=== PATIENT | female | born 1965 | race Caucasian/White ===

== ENCOUNTER 2019-03-11 10:31 | Inpatient (IN) ==
[2019-03-11] MEDS ORDERED: NS 1,000 ML IV ONE (11:10)
[2019-03-11] MEDS ORDERED: DUONEB (A & A) INH ONE (11:11)
--- NOTE | 2019-03-11 11:23 | Diag Imaging Result Doc PS360 ---
EXAM: CHEST-2 VIEWS HISTORY: cough, SOB TECHNIQUE: Two views COMPARISON: 01/01/2017 FINDINGS: The lungs are well expanded. The heart is not enlarged. The vessels are not distended. There are nodular infiltrates in the lower left lung. No pleural effusions. IMPRESSION: Left lower lung nodular infiltrates. Short-term follow-up after treatment recommended. Electronically signed by Tomasz Alejo 03/11/2019 11:21 AM
[2019-03-11 11:28] LABS: BASO# 0.04 X1000 (0.0-0.2); BASO% 0.2 % (0.0-0.8); HEMATOCRIT 43.5 % (37.0-47.0); IMM GRAN# 0.22 X1000 (0.0-0.04); IMM GRAN% 1.3 % (0.0-0.5); LYMPH% 12.3 % (20.5-51.1); MCH 28.1 PG (27-31); MCHC 32.2 g/dL (33-37); MCV 87.2 FL (81-99); MONO# 1.37 X1000 (0.11-0.59); MPV 10.6 FL (7.4-10.4); NEUT# 13.31 X1000 (1.4-6.5); NEUT% 78.2 % (42.2-75.2); PLT 394 X1000 (130-400); RBC 4.99 XMIL (4.2-5.4); WBC 17.04 X1000 (4.8-10.8)
[2019-03-11] MEDS ORDERED: ROCEPHIN 1 GM in NS 50 ML IV ONE (11:40)
--- NOTE | 2019-03-11 11:50 | PROVIDER DOCUMENTATION ---
This chart was entered by Polly Rosales Scribe, acting as scribe for Dulce Lewis MD. HPI-General Adult - General Chief Complaint: Shortness of Breath Stated Complaint: POSSIBLE PNEUMONIA/+FLU Time Seen by Provider: 03/11/19 10:48 Source: patient Allergies/Adverse Reactions: Patient Allergies Allergy/AdvReac Type Severity Reaction Status Date / Time morphine Allergy Intermediate HIVES Verified 03/11/19 13:58 Home Medications: Home Medication List Medication Instructions Recorded Confirmed Last Taken Type LISINOpril [Prinivil] 10 mg PO DAILY 06/27/15 03/11/19 03/11/19 History Pantoprazole [Protonix] 40 mg PO BID 06/27/15 03/12/19 03/11/19 History Hydrocodone Bit/Acetaminophen 1 each PO DAILY 10/27/16 03/11/19 03/11/19 History [Hydrocodon-Acetaminoph 7.5-325] Albuterol 2.5MG/Ipratrop 0.5MG 3 ml INH Q6H PRN PRN 01/01/17 03/11/19 03/11/19 History [Duoneb (A & A)] Fluticasone/Vilanterol [Breo 1 inh INH DAILY 01/01/17 03/11/19 03/11/19 History Ellipta 100-25 Mcg INH] Metformin HCl 2 tab PO TID 03/11/19 03/11/19 03/11/19 History Acetaminophen [Tylenol] 650 mg PO Q4H PRN PRN tab 03/14/19 Unknown Rx Amlodipine [Norvasc] 5 mg PO BID #60 tab 03/14/19 Unknown Rx Levofloxacin [Levaquin] 750 mg PO DAILY #11 tab 03/14/19 Unknown Rx Penicillin V Potassium [Pen Vk] 500 mg PO Q8H #66 tab 03/14/19 Unknown Rx - History of Present Illness -Gen Adult Nature of Presenting Problems: Patient is a 53 year old female who presents to the ED via EMS with multiple complaints. States symptoms of fever, cough, shortness of breath, loss of appetite, nausea, vomiting and diarrhea. Report being diagnosed with flu 4 days ago and was diagnosed with pneumonia, dehydration and UTI this morning. History of asthma, HTN and diabetes. Denies having a flu shot. Location of Pain/Injury: reports: none Quality of Pain: reports: none Severity: reports: mild Onset/Duration: reports: gradual Timing: reports: still present, getting worse Context/Activities at Onset: reports: light activity Associated Symptoms: reports: cough, diarrhea, fever/chills (fever), loss of appetite, nausea, shortness of breath, vomiting Similar Symptoms Previously?: Yes Recently seen or treated by another doctor?: Yes Review of Systems - Adult - REVIEW OF SYSTEMS - ADULT Constitutional: reports: see HPI, fever Eyes: reports: no symptoms reported Ears, Nose, Mouth & Throat: reports: no symptoms reported Cardiovascular: reports: no symptoms reported Respiratory: reports: see HPI, cough, shortness of breath Gastrointestinal: reports: see HPI, diarrhea, nausea, poor appetite, vomiting Genitourinary: reports: no symptoms reported Musculoskeletal: reports: no symptoms reported Integumentary: reports: no symptoms reported Neurological: reports: no symptoms reported Psychiatric: reports: no symptoms reported Endocrine: reports: no symptoms reported Hematologic/Lymphatic: reports: no symptoms reported Allergic/Immunologic: reports: no symptoms reported All Other Systems: Reviewed and Negative Past History - Adult - PAST MEDICAL HISTORY-ADULT Review of Records: reports: Old Records Reviewed, Nursing Assessment Review, Medications Reviewed, Social history reviewed & non-contributory. Major Childhood Illnesses: reports: denies history Cardiovascular: reports: HTN, hyperlipidemia Respiratory: reports: asthma Gastrointestinal: reports: GERD Genitourinary: reports: denies history Musculoskeletal: reports: other (chronic back pain, disc hernia) Neurological: reports: denies history Endocrine/Immune: reports: Diabetes Other Conditions: reports: denies history - PRIOR SURGERIES/PROCEDURES Surgical/Procedure History: reports: cholecystectomy, BTL - IMMUNIZATION STATUS Childhood Immunizations: See Nurse Assessment Flu Vaccine: See Nurse Assessment - FAMILY HISTORY Family History: reviewed, not pertinent - SOCIAL HISTORY Smoking: denies Substance Use: denies Living Situation: family Physical Exam-General - PHYSICAL EXAM-ADULT Initial Vital Signs Reviewed: Yes - CONSTITUTIONAL General Appearance: alert, no apparent distress. negative: obtunded - RESPIRATORY Respiratory: chest non-tender, rhonchi (right). negative: respiratory distress, accessory muscle use - CARDIOVASCULAR Cardiovascular: regular rate, rhythm, no gallop. negative: tachycardia, systolic murmur - GASTROINTESTINAL (ABDOMEN) Abdominal Exam: normal bowel sounds, non tender, soft. negative: guarding, rigid - MUSCULOSKELETAL Extremity: non-tender, normal inspection. negative: pedal edema - SKIN Integumentary: normal turgor, warm/dry. negative: diaphoresis - NEUROLOGIC Neurologic: grossly normal. negative: aphasia - PSYCHIATRIC Psych/Mental Status: normal mood/affect, oriented x 3. negative: anxious Progress - PLAN OF CARE/RESULTS Progress/Plan/Lab Results: Vital Signs - 8 hr 03/11/19 10:48 Temperature 99.2 F Pulse Rate 86 Respiratory Rate 15 Blood Pressure 146/80 O2 Sat by Pulse Oximetry 96 Orders Category Date Time Status CHEST-2 VIEWS [RAD] Stat Exams 03/11/19 11:09 Ordered CBC WITH ELECTRONIC DIFF [HEME] Stat Lab 03/11/19 11:09 Uncollected COMPREHENSIVE METABOLIC PANEL [CHEM] Stat Lab 03/11/19 11:09 Uncollected LACTATE, PLASMA [CHEM] Stat Lab 03/11/19 11:10 Uncollected URINALYSIS W/POSS RFLX CULT [URINALYSIS] Stat Lab 03/11/19 11:09 Uncollected 0.9% Sodium Chloride Inj [Ns] 1,000 ml Med 03/11/19 11:10 Active IV 999 mls/hr Result Diagrams: 03/13/19 04:51 03/14/19 04:55 - XRAY 1 XRAY Study: Chest Impression: See EMR Report (EXAM: CHEST-2 VIEWS HISTORY: cough, SOB TECHNIQUE: Two views COMPARISON: 01/01/2017 FINDINGS: The lungs are well expanded. The heart is not enlarged. The vessels are not distended. There are nodular infiltrates in the lower left lung. No pleural effusions. IMPRESSION: Left lower lung nodular infiltrates. Short-term follow-up after treatment recommended. Electronically signed by Tomasz Alejo 03/11/2019 11:21 AM) - CONSULTS/PCP/HOSPITALIST Notification #1 *Consult/PCP/Hospitalist*: JOSE LUIS Iqbal for Hospitalist Time Discussed: 13:30 Reason/Comments: Dr. Lewis consulted with Farida about patient. Consult Disposition: Will see in ED, Admit Departure - Departure Date of Disposition Decision: 03/11/19 Time of Disposition Decision: 13:30 DIAGNOSIS: Pneumonia Disposition: ADMITTED INPATIENT 09 Certified Medical Emergency: Emergent Condition: Stable - Critical Care Note This patient required my direct & personal management of CC.: No Attestation - Physician/ OLIVIA Attestation The physician spent face to face time with patient:: Yes Advanced Practice Provider documentation review:: Supervising physician onsite and consulted in the evaluation and care of this patient. The physician did have a face to face encounter with the patient. This chart was documented by the indicated scribe, (Polly Rosales Scribe) and accurately reflects the services I performed and decisions made by me, Dulce Lewis MD, as attested by the provider's signature.
[2019-03-11 12:17] LABS: URINE SOURCE CLEAN CATCH
[2019-03-11 12:20] LABS: AGAP 19; ALB/GLOB RATIO 0.9; ALBUMIN 3.4 g/dL (3.5-5.0); ALKALINE PHOSPHATASE 85 U/L (32-104); BUN 7 mg/dL (8-22); CALCIUM 8.8 mg/dL (8.8-10.2); CHLORIDE 90 mmol/L (98-107); COSMO 261; CREATININE 0.7 mg/dL (0.5-0.9); ESTIMATED GFR > 60; GLUCOSE 169 mg/dL (70-104); GOT 51 U/L (10-30); GPT 40 U/L (10-36); POTASSIUM 3.6 mmol/L (3.5-5.1); SODIUM 129 mmol/L (136-145); TCO2 20 mmol/L (25-35); TOTAL BILIRUBIN 0.71 mg/dL (0.20-1.00); TOTAL PROTEIN 7.2 g/dL (6.3-8.3)
[2019-03-11 12:22] LABS: BILIRUBIN URINE NEGATIVE (NEGATIVE); BLOOD URINE LARGE (NEGATIVE); COLOR YELLOW; GLUCOSE URINE NEGATIVE (NEGATIVE); KETONE URINE 20 mg/dL (NEGATIVE); LEUKOCYTES URINE LARGE (NEGATIVE); NITRITE URINE NEGATIVE (NEGATIVE); PROTEIN URINE 30 mg/dL (NEGATIVE); SP GRAVITY URINE 1.012; TURBIDITY URINE HAZY (CLEAR); UROBILINOGEN URINE NORMAL (NORMAL)
[2019-03-11 12:24] LABS: UR EPITHELIAL CELLS <10 /HPF (<10); URINE BACTERIA 2+ /HPF; URINE RBC <10 /HPF (<10); URINE WBC TNTC /HPF (<10)
[2019-03-11 12:28] LABS: URINE CASTS NONE SEEN; URINE CRYSTALS NONE SEEN; URINE SMALL ROUND CELLS RENAL PRESENT; URINE YEAST NONE SEEN
[2019-03-11 12:34] LABS: INR 1.05; PROTIME 13.8 Seconds (11.0-16.0)
[2019-03-11] MEDS ORDERED: VANCOMYCIN 1 GM/NS 1 GM/250 ML IVPB IV ONE (13:25)
[2019-03-11] MEDS ORDERED: DUONEB (A & A) INH PRN (15:46)
[2019-03-11] MEDS ORDERED: TYLENOL PO PRN (15:46)
--- NOTE | 2019-03-11 16:15 | Diag Imaging Result Doc PS360 ---
EXAM: CHEST-PORTABLE 03/11/2019 HISTORY: Pneumonia TECHNIQUE: AP portable upright at 1558 COMMENT: Compared to 03/11/2019 at 1121 the left lower lobe opacities have improved slightly. IMPRESSION: Improved atelectasis and/or pneumonia in the left lower lobe. Electronically signed by Venkata Waddell 03/11/2019 4:13 PM
[2019-03-11] MEDS: NS 1,000 ML IV SCH (16:30)
[2019-03-11] MEDS: HUMALOG SUBQ SCH ×2 (16:30→22:17)
[2019-03-11] MEDS: MOTRIN PO SCH ×2 (16:50→22:17)
[2019-03-11] MEDS: DUONEB (A & A) INH SCH ×3 (17:48→23:11)
--- NOTE | 2019-03-11 17:53 | EKG Report ---
Test Performed on : 03/11/2019 5:29:44 PM Test Reason : elevated troponin Blood Pressure : / mmHG Vent. Rate : 087 BPM Atrial Rate : 087 BPM P-R Int : 134 ms QRS Dur : 078 ms QT Int : 398 ms P-R-T Axes : 062 035 -25 degrees QTc Int : 478 ms Normal sinus rhythm. Nonspecific ST and T wave abnormality Abnormal ECG When compared with ECG of 01-JAN-2017 21:32, T wave inversion now evident in Inferior leads Nonspecific T wave abnormality now evident in Anterolateral leads Unconfirmed Result
[2019-03-11] MEDS: ZITHROMAX 500 MG/NS 500 MG/250 ML IVPB IV SCH (18:30)
--- NOTE | 2019-03-11 21:22 | HISTORY AND PHYSICAL ---
PRIMARY CARE PROVIDER: Dr. Reg Hyman. CHIEF COMPLAINT: Pneumonia, flu, nausea, vomiting, UTI. HISTORY OF PRESENT ILLNESS: Ms. Donis is a 53-year-old female who reports she went to an urgent care 3 days ago with nausea, vomiting, and diarrhea. They thought she had the flu at that time. She went back to an urgent care today and since her symptoms started last Sunday, they thought it had been too long to start her on Tamiflu, but was also diagnosed with pneumonia and a urinary tract infection. She reported her last episode of vomiting and diarrhea was yesterday. She has had shortness of breath, headache, body aches and chills, but no chest pain per se, loss of appetite. She called EMS to bring her to the ED. Workup revealed a white count of 17, flu A positive, a left lower lung infiltrate, urinary tract infection, mild transaminitis, negative lactate, and a troponin of 45, but no complaints of chest pain. We will initiate her on IV fluids and symptomatic treatment with Tylenol and Motrin, and Rocephin for her pneumonia, bronchodilators and supplemental O2, and aggressive IV hydration. PAST MEDICAL HISTORY: 1. Diabetes mellitus. 2. Hypertension. 3. Hyperlipidemia. 4. Asthma. 5. Gastroesophageal reflux disease. 6. Chronic back pain. PAST SURGICAL HISTORY: 1. Cholecystectomy. 2. Bilateral tubal ligation. FAMILY HISTORY: No coronary disease. I believe a grandmother with a CVA. ALLERGY: Morphine. HOME MEDICATIONS: 1. Breo Ellipta inhaled once daily. 2. DuoNeb 3 mL inhaled q.6 hours p.r.n. 3. [place] 7.5/325 one each daily. 4. Metformin 500 mg 2 tablets p.o. t.i.d. 5. Prinivil 10 mg p.o. daily. 6. Protonix 40 mg p.o. daily. REVIEW OF SYSTEMS: Twelve-point review of systems completely negative except for those mentioned in HPI. PHYSICAL EXAMINATION: VITAL SIGNS: Temperature is 99.7 degrees, heart rate 86, respirations 13, blood pressure 130/72, O2 is 93% on room air. GENERAL: Ms. Donis is an ill-appearing 53-year-old female who is sitting up in the bed in no acute distress. HEENT: Atraumatic, normocephalic. PERRL. NECK: Supple. Trachea midline. CV: S1, S2 appreciated. No murmurs, gallops, rubs noted. RESPIRATORY: Lung sounds scattered rhonchi. No wheezes appreciated. GI: Soft, nontender, and nondistended. Positive bowel sounds 4 quadrants. EXTREMITIES: Lower extremities negative for edema. NEUROLOGIC: No focal deficits noted. IMAGING: Chest x-ray showed left lower lung nodular infiltrates. Recommended followup after treatment. LABORATORY DATA: White count 17, hemoglobin and hematocrit 14 and 43, platelet count is 349,000. Chemistry: Sodium 129, potassium 3.6, BUN 7, creatinine 0.7, blood glucose is 169. AST 51, ALT 40. CK 158. Troponin 45. Plasma lactates are negative. ASSESSMENT AND PLAN: 1. Flu A positive. The patient has been having fever and chills and general malaise since Sunday. She is too far out for Tamiflu. We will continue with symptomatic treatment and aggressive intravenous hydration. 2. Left lower lung pneumonia. We will initiate intravenous Rocephin, bronchodilators, supplemental oxygen, aggressive pulmonary toilet. Will recheck a chest x-ray after treatment per recommendations. 3. Urinary tract infection. We will continue Rocephin. Await urine culture. 4. Nausea, vomiting, diarrhea. She has had no episodes since yesterday. We will do antiemetics p.r.n. 5. Clinical dehydration. We will continue with aggressive intravenous fluids. 6. Elevated troponin. Patient adamantly denies any chest pain. We will continue to trend her troponins. Electrocardiogram is being obtained, check for any ST changes. 7. Mild transaminitis, secondary to dehydration. We will recheck liver function in the morning. Continue with hydration. 8. Hypertension, stable. 9. Hyperlipidemia. 10. Chronic back pain. 11. Further recommendation to follow physician evaluation, laboratory and diagnostic data. Dictated by JOSE LUIS Andrea for Vadim Hartman MD cc: MD Reg Nelson MD
--- NOTE | 2019-03-11 21:51 | HISTORY AND PHYSICAL ---
HISTORY OF PRESENT ILLNESS: Patient seen and examined by me face to face. All the laboratory, vital signs, and images were reviewed. This patient presented to the emergency department with shortness of breath mainly, also fever, loss of appetite, some diarrhea and nausea. I believe she had some kind of vomiting for a little bit. As per the patient, she was diagnosed with flu 4 to 5 days ago. She is hyponatremic. The glucose level is 169. AST and ALT are elevated. White blood cell count is high as well. I do not think this patient is septic although she has high white blood cell count, a source of infection at the level of the left lower lung. She also had a low- grade temperature of 99.7 degrees. She already received some antibiotics. She has been placed on ceftriaxone, and I agree with that, as well as IV fluids. I will add azithromycin to her medications. I am not going to continue her oseltamivir that she was taking at home. I will put her back on her pantoprazole, her Breo as well. She is already on breathing treatment. I agree with the rest of the nurse practitioner's assessment and plan cc: Vadim Hartman MD MTDD
[2019-03-12] MEDS: NS 1,000 ML IV SCH ×4 (01:06→14:17)
[2019-03-12] MEDS: DUONEB (A & A) INH SCH ×6 (03:21→23:05)
[2019-03-12] MEDS: MOTRIN PO SCH ×4 (04:20→21:30)
[2019-03-12 05:51] LABS: HEMOGLOBIN A1C 7.3 % (4.8-6.0)
[2019-03-12] MEDS: HUMALOG SUBQ SCH ×5 (06:39→21:27)
[2019-03-12 07:33] LABS: AGAP 17; ALKALINE PHOSPHATASE 81 U/L (32-104); BUN 8 mg/dL (8-22); CALCIUM 8.4 mg/dL (8.8-10.2); CHLORIDE 104 mmol/L (98-107); COSMO 284; CREATININE 0.6 mg/dL (0.5-0.9); ESTIMATED GFR > 60; GLUCOSE 148 mg/dL (70-104); GOT 20 U/L (10-30); GPT 26 U/L (10-36); POTASSIUM 3.6 mmol/L (3.5-5.1); SODIUM 142 mmol/L (136-145); TCO2 21 mmol/L (25-35); TOTAL BILIRUBIN 0.38 mg/dL (0.20-1.00)
[2019-03-12 08:46] LABS: BASO# 0.04 X1000 (0.0-0.2); BASO% 0.3 % (0.0-0.8); EOS# 0.06 X1000 (0.0-0.7); EOS% 0.4 % (0.0-10.0); HEMATOCRIT 36.5 % (37.0-47.0); HEMOGLOBIN 11.6 g/dL (12.0-16.0); IMM GRAN# 0.08 X1000 (0.0-0.04); IMM GRAN% 0.5 % (0.0-0.5); LYMPH# 3.46 X1000 (1.2-3.4); LYMPH% 22.9 % (20.5-51.1); MCHC 31.8 g/dL (33-37); MCV 88.2 FL (81-99); MONO# 1.25 X1000 (0.11-0.59); MONO% 8.3 % (1.7-9.3); MPV 10.9 FL (7.4-10.4); NEUT# 10.21 X1000 (1.4-6.5); NEUT% 67.6 % (42.2-75.2); PLT 329 X1000 (130-400); RBC 4.14 XMIL (4.2-5.4)
[2019-03-12] MEDS: PROTONIX PO SCH (09:32)
[2019-03-12] MEDS ORDERED: FLU VACCINE IM ONE (11:27)
[2019-03-12] MEDS ORDERED: TAMIFLU PO SCH (12:15)
[2019-03-12] MEDS: ROCEPHIN 1 GM in NS 50 ML IV SCH (14:17)
[2019-03-12] MEDS: BREO ELLIPTA 100/25 MCG INH INH SCH (16:00)
[2019-03-12] MEDS ORDERED: PRINIVIL PO ONE (16:42)
[2019-03-12] MEDS: ZITHROMAX 500 MG/NS 500 MG/250 ML IVPB IV SCH (17:31)
--- NOTE | 2019-03-12 17:40 | PROGRESS NOTE ---
DATE: 03/13/2019 SUBJECTIVE: This patient is feeling much better. She is still having some shortness of breath. She is still using oxygen. We have a positive sputum culture that showed gram-negative rods and also a urine culture that showed gram-negative trell. This patient has been placed on ceftriaxone and azithromycin. We also have an influenza test that showed positive for influenza A, but this patient has been having some symptomatology like fever, chills, and general malaise since Sunday, so she is too far out for treatment with oseltamivir. OBJECTIVE: Vital Signs: Temperature 97.7 degrees, pulse 72, respiratory rate 19, blood pressure 155/72, oxygen saturation 96 on 2 L of nasal cannula. HEENT: Head normocephalic, no trauma. PERRLA. Neck: Supple. No JVD. No masses. Central trachea. Chest: Clear to auscultation. Some crepitus and rhonchi at the left base. Abdomen: Soft, nontender, nondistended. No hepatosplenomegaly. Extremities: No edema. No clubbing. No cyanosis. Neurological: The patient is awake, alert. She is oriented x3. No focal deficits. LABORATORY: WBC 15.1, hemoglobin 11.6, hematocrit 36.5, platelets 329,000. Sodium 142, potassium 3.6, chloride 104, bicarbonate 21, BUN 8, creatinine 0.6, glucose 148, calcium 8.4, albumin 3. ASSESSMENT AND PLAN: 1. Left lower lobe pneumonia. Continue with azithromycin and ceftriaxone. Continue with oxygen supplementation, pulmonary toilet, IV fluids, breathing treatment. 2. Flu A positive. This patient started having fever last Sunday, so she is too far out for treatment with Tamiflu. Continue with symptomatic treatment for now. 3. Urinary tract infection. Continue with Rocephin. 4. Nausea, vomiting, diarrhea. It looks like this patient seems to be feeling better. She has been placed on a diet and she is tolerating that. 5. Dehydration. Resolved. 6. Elevated troponin. No chest pain. No EKG changes. 7. Mild transaminitis secondary to dehydration. 8. Hypertension. Stable. 9. Hyperlipidemia. Aware. 10. Chronic back pain. Aware. cc: Vadim Hartman MD
[2019-03-13] MEDS: NS 1,000 ML IV SCH ×2 (00:04→11:40)
[2019-03-13] MEDS: DUONEB (A & A) INH SCH ×7 (03:26→23:30)
[2019-03-13] MEDS: MOTRIN PO SCH ×4 (05:13→21:48)
[2019-03-13] MEDS: HUMALOG SUBQ SCH ×4 (06:14→21:50)
[2019-03-13 06:18] LABS: BASO# 0.07 X1000 (0.0-0.2); BASO% 0.7 % (0.0-0.8); EOS# 0.11 X1000 (0.0-0.7); EOS% 1.1 % (0.0-10.0); HEMATOCRIT 35.1 % (37.0-47.0); HEMOGLOBIN 10.9 g/dL (12.0-16.0); IMM GRAN# 0.16 X1000 (0.0-0.04); IMM GRAN% 1.6 % (0.0-0.5); LYMPH% 30.5 % (20.5-51.1); MCH 27.5 PG (27-31); MCHC 31.1 g/dL (33-37); MCV 88.4 FL (81-99); MONO# 0.77 X1000 (0.11-0.59); MONO% 7.8 % (1.7-9.3); MPV 10.5 FL (7.4-10.4); NEUT# 5.72 X1000 (1.4-6.5); NEUT% 58.3 % (42.2-75.2); PLT 317 X1000 (130-400); RBC 3.97 XMIL (4.2-5.4); RDW 13.5 % (11.5-14.5); WBC 9.83 X1000 (4.8-10.8)
[2019-03-13 06:30] LABS: AGAP 14; BUN 4 mg/dL (8-22); CALCIUM 8.1 mg/dL (8.8-10.2); CHLORIDE 108 mmol/L (98-107); COSMO 291; CREATININE 0.6 mg/dL (0.5-0.9); ESTIMATED GFR > 60; GLUCOSE 230 mg/dL (70-104); POTASSIUM 2.8 mmol/L (3.5-5.1); SODIUM 144 mmol/L (136-145); TCO2 22 mmol/L (25-35)
[2019-03-13] MEDS ORDERED: BLISTEX MEDICATED BERRY LIP BALM TOP PRN (08:05)
[2019-03-13 08:13] LABS: LYMPHS 30 % (21-51); SEGS 56 % (42-75)
[2019-03-13 08:14] LABS: EOS 1 % (1-10); MONO 9 % (1-9)
[2019-03-13] MEDS: PROTONIX PO SCH (10:18)
[2019-03-13] MEDS: PRINIVIL PO SCH (10:19)
[2019-03-13] MEDS: BREO ELLIPTA 100/25 MCG INH INH SCH (11:10)
[2019-03-13] MEDS: ROCEPHIN 1 GM in NS 50 ML IV SCH (12:50)
[2019-03-13] MEDS ORDERED: KLOR-CON PO ONE (15:38)
[2019-03-13] MEDS ORDERED: NORVASC PO ONE (15:39)
[2019-03-13] MEDS ORDERED: POTASSIUM CHLORIDE 10% LIQUID PO ONE (16:10)
[2019-03-13] MEDS: ZITHROMAX 500 MG/NS 500 MG/250 ML IVPB IV SCH (17:28)
--- NOTE | 2019-03-13 19:14 | PROGRESS NOTE ---
DATE: 03/13/2019 SUBJECTIVE: The patient is feeling much better. Her blood pressure has been high, so I will stop the IV fluids now since she seems to be hydrated, and I will give her a single dose of amlodipine. Continue with lisinopril. Her white blood cell count normalized today at 9.8. Her potassium level is low and I will replace it. She still has a sputum culture showing gram-negative rods and also Streptococcus mitis and Streptococcus oralis. Urine culture showed Proteus mirabilis, but she is asymptomatic. OBJECTIVE: Vital Signs: Temperature 97.4 degrees, pulse 70, respiratory rate 18, blood pressure 182/90, oxygen saturation 99% on room air. HEENT: Head normocephalic, no trauma. PERRLA. Neck: Supple. No JVD. No masses. Central trachea. Chest: Clear to auscultation. Crepitus and rhonchi at the level of the left base. Abdomen: Soft, nontender, nondistended. No hepatosplenomegaly. Extremities: No edema, no clubbing, no cyanosis. Neurological: The patient is awake, alert. She is oriented x3. No focal deficits. LABORATORY DATA: WBC 9.8, hemoglobin 10.9, hematocrit 35.1, platelets 317,000. Sodium 144, potassium 2.8, chloride 108, bicarbonate 22, BUN 4, creatinine 0.6, glucose 230, calcium 8.1. ASSESSMENT AND PLAN: 1. Left lower lobe pneumonia. Continue with azithromycin and ceftriaxone. Continue with oxygen supplementation as needed, pulmonary toilet. I will stop the intravenous fluid, and I will continue with breathing treatment. 2. Flu A positive. The patient started having fever last Sunday, so she is too far out to start treatment with Tamiflu this time. Continue with symptomatic treatment for now. I think she is getting better. 3. Urinary tract infection, asymptomatic. 4. Nausea, vomiting, and diarrhea, better. 5. Dehydration, resolved. 6. Elevated troponin. No chest pain. No EKG changes. 7. Mild transaminitis secondary to dehydration, resolved. 8. Hypertension. As per the patient, her blood pressure at home has been controlled with lisinopril 10 mg, and she has been recommended by her doctor if the blood pressure increases a little bit, increase the day lisinopril to 20, and as per the patient, this has been controlling her blood pressure. 9. Hyperlipidemia, aware. 10. Chronic back pain. Continue with same management. SUMMARY/PLAN: Overall, this patient is doing much better. I am still waiting for the sputum culture. Hopefully, tomorrow morning I will discharge this patient home. cc: Vadim Hartman MD
[2019-03-14] MEDS: DUONEB (A & A) INH SCH ×2 (03:10→07:39)
[2019-03-14] MEDS: MOTRIN PO SCH ×2 (05:05→09:37)
[2019-03-14 05:50] LABS: AGAP 14; BUN 3 mg/dL (8-22); CALCIUM 8.4 mg/dL (8.8-10.2); CHLORIDE 108 mmol/L (98-107); COSMO 287; CREATININE 0.5 mg/dL (0.5-0.9); ESTIMATED GFR > 60; GLUCOSE 155 mg/dL (70-104); MAGNESIUM 1.5 mg/dL (1.5-2.7); PHOSPHORUS 2.8 mg/dL (2.7-4.5); SODIUM 144 mmol/L (136-145); TCO2 22 mmol/L (25-35)
[2019-03-14] MEDS: HUMALOG SUBQ SCH (06:09)
[2019-03-14] MEDS: BREO ELLIPTA 100/25 MCG INH INH SCH (07:43)
[2019-03-14 08:18] VITALS: BP 194/86
[2019-03-14] MEDS ORDERED: NORVASC PO ONE (08:38)
[2019-03-14] MEDS ORDERED: POTASSIUM CHLORIDE 20% LIQUID PO ONE (08:38)
[2019-03-14] MEDS: PROTONIX PO SCH (09:37)
[2019-03-14] MEDS: PRINIVIL PO SCH (09:37)
--- NOTE | 2019-03-14 22:47 | DISCHARGE SUMMARY ---
ADMISSION DATE: 03/11/2019 DISCHARGE DATE: 03/14/2019 DISCHARGE DIAGNOSES: 1. Left lower lobe pneumonia. 2. Flu A positive. 3. Urinary tract infection, asymptomatic. 4. Nausea, vomiting and diarrhea, resolved. 5. Dehydration, resolved. 6. Elevated troponin with no chest pain. 7. Mild transaminitis secondary to dehydration, resolved. 8. Uncontrolled hypertension. 9. Hyperlipidemia. 10. Chronic back pain. PROCEDURES PERFORMED: 1. Chest x-ray dated 03/11/2019. Impression: Left lower lung nodular infiltrates, short-term, followup after treatment recommended. 2. Chest x-ray dated 03/11/2019. Impression: Improved atelectasis and/or pneumonia in the left lower base. HOSPITAL COURSE: A 53-year-old female with a past medical history of diabetes, hypertension, hyperlipidemia, asthma, GERD, and chronic back pain reported that she went to an Urgent Care 3 days before admission with nausea, vomiting, and diarrhea. She was admitted on 03/11/2019. They thought she had the flu at that time. She went back to an Urgent Care the day of admission and, since her symptoms started last Sunday, they thought that it has been too long to start her Tamiflu, but also she was diagnosed with pneumonia and urinary tract infection. She reported her last episode of vomiting and diarrhea was the day before of admission. She has had shortness of breath, headache, body aches and chills but no chest pain per se, also loss of appetite. She called EMS to bring her to the emergency department. Workup revealed an elevated white blood cell count, flu A positive and left lower lobe pneumonia. She seems to have a urinary tract infection, but she is actually asymptomatic. Mild transaminitis due to dehydration, negative lactate, a slight elevation of the troponins with no chest pain. She was started on IV fluids and symptomatic treatment. We did not use Tamiflu because she had started having symptoms a few days before admission and she was far out for treatment. We started this patient on Rocephin and azithromycin for pneumonia. We ordered some blood cultures that showed from the sputum that showed Streptococcus mitis and Streptococcus oralis as well as Enterobacter cloacae complex. The urine culture showed Proteus mirabilis. At any rate, I have decided to send this patient home today because she was basically asymptomatic, as she is feeling much better. I will add amlodipine to her medications because she is having high blood pressure. As per the patient, the blood pressure at home is controlled only with lisinopril 10 mg and she has been instructed by her doctor to increase the dose to 20 mg if the blood pressure is slightly elevated. Upon discharge, the patient was in a stable medical condition, tolerating p.o. and ambulating. She will follow up with her primary care doctor in [address] Mckeon as well in a week or so. PHYSICAL EXAMINATION: Vital signs: Temperature 97.5 degrees, pulse 73, respiratory rate 15, blood pressure 194/86. Oxygen saturation 94% on room air. HEENT: Head normocephalic, no trauma, PERRLA. Neck: Supple, no JVD. No masses. Central trachea. Chest: Clear to auscultation. Some crepitus and rhonchi at the level of the left base. Abdomen: Soft, nontender, nondistended. No hepatosplenomegaly. Extremities: No edema, no clubbing, no cyanosis. Neurological: The patient is awake. She is alert. She is oriented x3. No focal deficits. LABORATORY: Sodium 144, potassium 3, chloride 108, bicarbonate 32, BUN 3, creatinine 0.5. Glucose 155, calcium 8.4, magnesium 1.5. DISCHARGE MEDICATIONS: 1. Acetaminophen 650 mg p.o. q.4 hours as needed. 2. DuoNeb 3 mL inhaler q.6 hours as needed for shortness of breath. 3. Amlodipine 5 mg p.o. b.i.d. 4. Breo Ellipta 100/25 mcg inhaler daily. 5. [place] 7.5 p.o. one tablet p.o. daily. 6. Levofloxacin 750 mg p.o. daily to complete 14 days. 7. Lisinopril 10 mg p.o. daily. 8. Metformin 1 g p.o. b.i.d. 9. Protonix 40 mg p.o. b.i.d. 10. Penicillin V potassium 500 mg p.o. q.8 hours to complete also 14 days of treatment. cc: Vadim Hartman MD
== END 2019-03-14 10:09 | disposition home or self-care (01) | DRG 194 ==
LOC: SUPCPDRO → ED 10:31 → EDIPHOLD 14:45 → 1N 03-12 10:17
PROVIDERS: ATTEND Internal Medicine